=== PATIENT | female | born 1980 | race Caucasian/White ===

== ENCOUNTER 2016-09-29 16:31 | Emergency (ER) | payer MEDICAID ==
[~2016-09-29] VITALS: Ht 172.7 cm; Wt 157.7 kg
[~2016-09-29 16:31] MED LIST: BACTRIM DS 8001 TAB PO; BACTROBAN2% TP; CEFTIN500 MG PO; CELEXA20 MG PO; CEPHALEXIN500 M1 PO; CIPRO 250MG TA250 MG PO; CIPRO 500MG TA500 MG PO; CYMBALTA 60MG60 MG PO; DAZIDOX10 MG PO; DIFLUCAN150 MG PO; DOXYCYCLINE 10100 MG PO; DOXYCYCLINE100 M2 PO; DOXYCYCLINE100 MG PO; FLAGYL500 MG PO; FLONASEALLERGY NS; KEFLEX500 MG PO; LEVAQUIN 5500 MG/TA1 PO; LEVAQUIN 5500 MG/TAB PO; LEXAPRO 10MG10 MG PO; LORTAB 5/500 501 TAB PO; LORTAB 7.5/5001 TAB PO; MACROBID 1100 MG/CAP PO; METRONIDAZOLE500 MG PO; NO HOME MEDICATIONS; NORCO 325 MG-51 TAB PO; NORCO 325 MG-7.1 TAB PO; OMNICEF 300MG300 MG PO; PHENERGAN 25 TA25 MG PO; PHENERGAN25 MG RC; PHENTERMINE; PROAIR HFA0.09 MG/AC IH; PYRIDIUM 100MG100 MG PO; PYRIDIUM200 M1 PO; RITE AID LICE T59 ML TP; ROXICODONE 55 MG/TAB PO; SEPTRA DS 8001 TAB PO; STOOL SOFTENER100 M2 PO; STRATTERA 10MG10 MG PO; TESSALON PERLE200 MG PO; ULTRAM 50MG TAB50 MG PO; VICODIN 5/5001 UDTAB PO; VITAMIN B12100 MCG PO; VYVANSE50 MG PO; WELLBUTRIN XL300 M1 PO; ZITHROMAX 250M250 MG PO; ZITHROMAX Z PA250 MG PO; ZOFRAN8 MG PO; ZOLOFT 25MG25 MG PO; [UNRECOGNIZED DRUG - OTHER]; [UNRECOGNIZED DRUG - OTHER]
[2016-09-29 16:43] VITALS: BP 130/103; TEMP 98.4
[2016-09-29 17:39] LABS: INFLUENZA B NEGATIVE
[2016-09-29] MEDS ORDERED: TESSALON P100 MG/CAP PO (18:02)
[2016-09-29 18:15] VITALS: PULSE 88
== END 2016-09-29 18:14 | disposition home or self-care (01) ==
LOC: COL.ER 16:31
PROVIDERS: Physician Assistant
DX: J06.9 Acute upper respiratory infection, unspecified (principal); F17.210 Nicotine dependence, cigarettes, uncomplicated

== ENCOUNTER 2017-01-25 22:07 | Emergency (ER) | payer MEDICAID ==
[~2017-01-25] VITALS: Ht 172.7 cm; Wt 131.8 kg
[~2017-01-25 22:07] MED LIST changes: +TESSALON P100 MG/CAP PO
[2017-01-25 22:11] VITALS: PULSE 90; TEMP 98.8
[2017-01-25] MEDS ORDERED: EMBEDA PO (22:16)
[2017-01-25 22:53] VITALS: BP 154/108
== END 2017-01-25 22:54 | disposition home or self-care (01) ==
LOC: COL.ER 22:07
DX: H10.33 Unspecified acute conjunctivitis, bilateral (principal); I10 Essential (primary) hypertension

== ENCOUNTER 2017-03-26 03:58 | Emergency (ER) | payer MEDICAID ==
[~2017-03-26] VITALS: Ht 172.7 cm; Wt 138.2 kg
[~2017-03-26 03:58] MED LIST changes: +EMBEDA PO
[2017-03-26 04:00] VITALS: TEMP 98.4
[2017-03-26] MEDS ORDERED: PYRIDIUM200 M1 PO (04:38)
[2017-03-26] MEDS ORDERED: CIPRO 500MG TA500 MG PO (04:38)
[2017-03-26 04:49] LABS: PH 6 (5-8); SQUAMOUS EPITHELIAL 0-2 /hpf; URINE APPEARANCE Clear; URINE BACTERIA Rare /hpf; URINE BILIRUBIN Negative (NEGATIVE); URINE BLOOD 2+ (NEGATIVE); URINE COLOR Yellow; URINE GLUCOSE Negative (NEGATIVE); URINE KETONE Negative (NEGATIVE); URINE RBC 0-2 /hpf; URINE UROBILINOGEN Negative (NEGATIVE); URINE WBC >50 /hpf
[2017-03-26 04:55] VITALS: BP 145/81; PULSE 84
[2017-03-26 06:16] LABS: CHLAMYDIA/TRACH by PCR Female DETECTED; NEISSERIA GON by PCR Female NOT DETECTED
[2017-03-26] MEDS ORDERED: DOXYCYCLINE 10100 MG PO (06:47)
== END 2017-03-26 04:55 | disposition home or self-care (01) ==
LOC: COL.ER 03:58
PROVIDERS: Emergency Medicine
DX: N30.00 Acute cystitis without hematuria (principal)

== ENCOUNTER 2017-06-02 14:05 | Emergency (ER) | payer MEDICAID ==
[~2017-06-02] VITALS: Ht 172.7 cm; Wt 154.5 kg
[2017-06-02 14:07] VITALS: BP 182/109; PULSE 82; TEMP 99
[2017-06-02] MEDS ORDERED: TENEX PO (14:10)
[2017-06-02 14:50] LABS: BASO # 0.1 (0.0-0.2); BASO % 0.4 % (0.0-2.0); EOS # 0.2 (0.0-0.7); EOS % 1.6 % (0-4.0); GRAN # 7.7 (1.4-6.5); HEMATOCRIT 41.4 % (37.0-47.0); HEMOGLOBIN 13.4 g/dl (12.5-16.0); LYMPH # 3.3 (1.2-3.4); LYMPH % 27.6 % (20.0-51.0); MEAN CELL VOLUME 92 fl (80.0-100.0); MEAN CORPUSCULAR HEMOGLOBIN 30 pg (27.0-31.0); MEAN CORPUSCULAR HGB CONC 32 g/dl (33.0-37.0); MEAN PLATELET VOLUME 10.1 fl (7.4-10.4); MONO # 0.8 (0.1-0.6); MONO % 6.2 % (1.7-9.3); PLATELET COUNT 360 K/mm3 (130-400); RED BLOOD COUNT 4.48 M/mm3 (4.10-5.30); REDCELL DISTRIBUTION WIDTH-CV 13.6 % (11.5-14.5); WHITE BLOOD COUNT 12.1 K/mm3 (4.8-10.8)
[2017-06-02 15:03] LABS: ADJUSTED CALCIUM 9.1 mg/dL (8.4-10.2); ALANINE AMINOTRANSFERASE 17 U/L (9-52); ALBUMIN 4.1 gm/dL (3.5-5.0); ALKALINE PHOSPHATASE 91 U/L (50-136); ANION GAP 9 mmol/L (7-16); BILIRUBIN,TOTAL 0.5 mg/dL (0.0-1.0); BLOOD UREA NITROGEN 8 mg/dL (7-17); CALCIUM 9.2 mg/dL (8.4-10.2); CARBON DIOXIDE 26 mmol/L (22-30); CHLORIDE 106 mmol/L (98-107); CREATININE, serum 0.74 mg/dL (0.52-1.25); GLUCOSE 96 mg/dL (74-106); SODIUM 142 mmol/L (137-145); TOTAL PROTEIN 7.6 gm/dL (6.4-8.2)
[2017-06-02 15:11] LABS: ACETAMINOPHEN < 10 ug/mL (10-30); SALICYLATE < 1.0 mg/dL
[2017-06-02 15:13] LABS: AMPHETAMINE URINE NEGATIVE; BARBITURATES URINE NEGATIVE; BENZODIAZEPINES URINE NEGATIVE; BUPRENORPHINE URINE NEGATIVE; METHADONE URINE NEGATIVE; OPIATES URINE NEGATIVE; OXYCODONE URINE NEGATIVE; PHENCYCLIDINE URINE NEGATIVE; PROPOXYPHENE URINE NEGATIVE; THC CANNABINOIDS URINE NEGATIVE
== END 2017-06-02 17:39 | disposition home or self-care (01) ==
LOC: COL.ER 14:05
PROVIDERS: Physician Assistant
DX: D72.829 Elevated white blood cell count, unspecified (principal); R45.851 Suicidal ideations; F43.9 Reaction to severe stress, unspecified; F41.9 Anxiety disorder, unspecified; F32.9 Major depressive disorder, single episode, unspecified; F17.210 Nicotine dependence, cigarettes, uncomplicated; Z91.5 Personal history of self-harm

== ENCOUNTER → 2017-08-25 | Outpatient (CLI) | payer MEDICAID ==
[~2017-08-25] VITALS: Ht 170.2 cm; Wt 156.7 kg
[~2017-08-25] MED LIST changes: +DESYREL 100MG100 MG PO; +LAMICTAL 25MG T25 MG PO; +TENEX PO
[2017-08-25 08:24] VITALS: BP 134/90; PULSE 64
== END ==
LOC: LIGHT 08-11 08:47
DX: M54.5 Low back pain (principal); F32.89 Other specified depressive episodes; E03.9 Hypothyroidism, unspecified; E88.81 Metabolic syndrome and other insulin resistance; Z68.43 Body mass index [BMI] 50.0-59.9, adult; Z71.3 Dietary counseling and surveillance

== ENCOUNTER 2017-10-26 00:59 | Emergency (ER) | payer MEDICAID ==
[~2017-10-26] VITALS: Ht 160 cm; Wt 132.3 kg
[2017-10-26 01:06] VITALS: TEMP 98.5
[2017-10-26 01:17] VITALS: BP 166/92; PULSE 90
[2017-10-26 01:18] LABS: COLLECTION METHOD CLEAN CATCH
[2017-10-26 01:28] LABS: PH 5 (5-8); URINE APPEARANCE Clear; URINE BILIRUBIN Negative (NEGATIVE); URINE BLOOD 2+ (NEGATIVE); URINE COLOR Yellow; URINE GLUCOSE Negative (NEGATIVE); URINE KETONE Negative (NEGATIVE); URINE LEUKOCYTE ESTERASE Negative (NEGATIVE); URINE NITRATE Negative (NEGATIVE); URINE PROTEIN(semi-quant) Negative (NEGATIVE); URINE UROBILINOGEN Negative (NEGATIVE)
[2017-10-26 01:34] LABS: URINE RBC 0-2 /hpf
[2017-10-26] MEDS ORDERED: FLAGYL500 MG PO (02:33)
== END 2017-10-26 02:52 | disposition home or self-care (01) ==
LOC: COL.ER 00:59
PROVIDERS: Nurse Practitioner
DX: N76.0 Acute vaginitis (principal); F17.210 Nicotine dependence, cigarettes, uncomplicated; Z90.49 Acquired absence of other specified parts of digestive tract; Z98.51 Tubal ligation status
CPT/HCPCS: J1170; J2405

== ENCOUNTER → 2018-02-17 | Outpatient (CLI) | payer MEDICAID | LOC: COL.RAD 16:10 | DX: M17.12 Unilateral primary osteoarthritis, left knee (principal) ==

== ENCOUNTER → 2018-05-18 | Outpatient (CLI) | payer MEDICAID | LOC: COL.RAD 08:04 | DX: M51.17 Intervertebral disc disorders with radiculopathy, lumbosacral region (principal); M47.27 Other spondylosis with radiculopathy, lumbosacral region ==

== ENCOUNTER 2019-04-28 19:36 | Emergency (ER) | payer MEDICAID ==
[~2019-04-28] VITALS: Ht 170.2 cm; Wt 145.5 kg
[2019-04-28 19:44] VITALS: BP 197/95; TEMP 99.1
[2019-04-28 20:12] LABS: COLLECTION METHOD CLEAN CATCH
[2019-04-28] MEDS ORDERED: DOXYCYCLINE HY100 MG PO (20:35)
[2019-04-28 20:45] LABS: MUCOUS Present /lpf; PH 5 (5-8); URINE APPEARANCE Hazy; URINE BACTERIA None Seen /hpf; URINE BILIRUBIN Negative (NEGATIVE); URINE BLOOD Negative (NEGATIVE); URINE COLOR Yellow; URINE GLUCOSE Negative (NEGATIVE); URINE KETONE Negative (NEGATIVE); URINE LEUKOCYTE ESTERASE Negative (NEGATIVE); URINE NITRATE Negative (NEGATIVE); URINE PROTEIN(semi-quant) Negative (NEGATIVE); URINE RBC 0-2 /hpf; URINE UROBILINOGEN Negative (NEGATIVE)
[2019-04-28 21:45] VITALS: PULSE 87
== END 2019-04-28 21:45 | disposition home or self-care (01) ==
LOC: COL.ER 19:36
PROVIDERS: Physician Assistant
DX: N89.8 Other specified noninflammatory disorders of vagina (principal); I10 Essential (primary) hypertension; Z20.2 Contact with and (suspected) exposure to infections with a predominantly sexual mode of transmission

== ENCOUNTER 2020-02-11 20:02 | Emergency (ER) | payer MEDICAID ==
[~2020-02-11 20:02] MED LIST changes: +DOXYCYCLINE HY100 MG PO
[2020-02-11 20:40] LABS: BASO # 0.1 (0.0-0.2); BASO % 0.2 % (0.0-2.0); EOS # 0.1 (0.0-0.7); EOS % 0.6 % (0-4.0); GRAN # 17.7 (1.4-6.5); GRAN % 75.8 % (42.2-75.2); HEMATOCRIT 42.7 % (37.0-47.0); HEMOGLOBIN 13.9 g/dl (12.5-16.0); MEAN CELL VOLUME 95 fl (80.0-100.0); MEAN CORPUSCULAR HEMOGLOBIN 31 pg (27.0-31.0); MEAN CORPUSCULAR HGB CONC 33 g/dl (33.0-37.0); MEAN PLATELET VOLUME 9.5 fl (7.4-10.4); MONO # 1.4 (0.1-0.6); MONO % 5.8 % (1.7-9.3); PLATELET COUNT 334 K/mm3 (130-400); RED BLOOD COUNT 4.48 M/mm3 (4.10-5.30); REDCELL DISTRIBUTION WIDTH-CV 13.8 % (11.5-14.5)
[2020-02-11 20:50] LABS: ALANINE AMINOTRANSFERASE 14 U/L (4-34); ALBUMIN 4.5 gm/dL (3.5-5.0); ALKALINE PHOSPHATASE 154 U/L (50-136); ANION GAP 9 mmol/L (7-16); AST,SGOT 28 U/L (15-37); BILIRUBIN,TOTAL 0.9 mg/dL (0.0-1.0); BLOOD UREA NITROGEN 14 mg/dL (7-17); CALCIUM 9.6 mg/dL (8.4-10.2); CARBON DIOXIDE 24 mmol/L (22-30); CHLORIDE 107 mmol/L (98-107); CREATININE, serum 0.86 (0.52-1.25); GLUCOSE 113 mg/dL (74-106); POTASSIUM 3.8 mmol/L (3.4-5.0); SODIUM 141 mmol/L (137-145); TOTAL PROTEIN 8.5 gm/dL (6.4-8.2)
[2020-02-11 20:53] LABS: ACETAMINOPHEN < 10 ug/mL (10-30); ALCOHOL(ethanol),MEDICAL < 10 mg/dL; SALICYLATE < 1.0 mg/dL
[2020-02-11] MEDS ORDERED: CIPRO 250MG TA250 MG PO (21:10)
[2020-02-11] MEDS ORDERED: PYRIDIUM200 M1 PO (21:11)
[2020-02-11] MEDS ORDERED: PRENATAL MVI PO (21:12)
[2020-02-11] MEDS ORDERED: VYVANSE30 MG PO (21:14)
[2020-02-11] MEDS ORDERED: VITAMIN D 400400 IU PO (21:14)
[2020-02-11 21:53] LABS: COLLECTION METHOD CLEAN CATCH
[2020-02-11 22:02] LABS: MUCOUS Present /lpf; PH 5 (5-8); URINE APPEARANCE Cloudy; URINE BACTERIA None Seen /hpf; URINE BILIRUBIN Negative (NEGATIVE); URINE BLOOD Negative (NEGATIVE); URINE COLOR Amber; URINE GLUCOSE Negative (NEGATIVE); URINE KETONE Trace (NEGATIVE); URINE LEUKOCYTE ESTERASE Negative (NEGATIVE); URINE NITRATE Negative (NEGATIVE); URINE PROTEIN(semi-quant) 1+ (NEGATIVE); URINE RBC 0-2 /hpf
[2020-02-11 22:19] LABS: TRICYCLIC ANTIDEPRESS URINE NEGATIVE
[2020-02-12 08:37] LABS: BASO # 0.1 (0.0-0.2); BASO % 0.3 % (0.0-2.0); EOS # 0.1 (0.0-0.7); EOS % 0.7 % (0-4.0); GRAN # 13.1 (1.4-6.5); GRAN % 69.6 % (42.2-75.2); HEMATOCRIT 39.6 % (37.0-47.0); HEMOGLOBIN 12.9 g/dl (12.5-16.0); LYMPH # 4.2 (1.2-3.4); LYMPH % 22.2 % (20.0-51.0); MEAN CELL VOLUME 96 fl (80.0-100.0); MEAN CORPUSCULAR HEMOGLOBIN 31 pg (27.0-31.0); MEAN CORPUSCULAR HGB CONC 33 g/dl (33.0-37.0); MEAN PLATELET VOLUME 9.4 fl (7.4-10.4); MONO # 1.3 (0.1-0.6); MONO % 6.6 % (1.7-9.3); PLATELET COUNT 285 K/mm3 (130-400); RED BLOOD COUNT 4.12 M/mm3 (4.10-5.30); REDCELL DISTRIBUTION WIDTH-CV 13.9 % (11.5-14.5)
[2020-02-12 12:55] VITALS: TEMP 98.3
--- NOTE | 2020-02-12 16:30 | NUR ---
Anthropologist Physical jimmy consult to assist with discharge planning for patient, who reports she is homeless. JASMIN collaborated with Gregoria CHAMBERLAIN who advised patient's mother, Yecenia (ph#[phone]) does not feel safe about patient discharging home with her due to patient's behaviors. SW met with patient who is tearful and occasionally raises her voice. Patient reports she has been staying with her mom on and off but her mom doesn't trust her anymore. Patient states reason she came to ER is because she found out there are friends she spends time with that she should not trust. Patient reports her sister Mily (ph#[phone]) brought her to the ER. Patient states she is worried about where she will go from here. Patient states she has been at [facility] before but doesn't think they will allow her back. Patient states she sees Dr. Guallpa, Psychiatrist and Sheila, Therapist at [facility] and has appointments with them scheduled for this week. JASMIN contacted Bijal, Pastry Wrapper at [facility] who advised they absolutely will not take patient back as she exhausted services available to her and due to her drug use. SW attempted to contact patient's sister, Mily and left a message. JASMIN contacted patient's mother, Yecenia who advised patient has an extensive mental health history and that she is concerned about patient's current stability. Yecenia inquired about a psych screen as patient has been incoherent on the phone with her. Yecenia reports patient stated she has finally figured out how to telepathically speak with the police through the santiago. JASMIN followed up with ER Physician and CINTIA Kinney about ordering a psych consult. JASMIN contacted [facility] and faxed facesheet and ER note to screener. JASMIN followed up with Gregoria CHAMBERLAIN who advised screen is on hold as patient is not medically cleared at this time. JASMIN provided update on discharge planning including that [facility] will not take patient back. SW to continue to follow as needed.
[2020-02-12 16:33] LABS: INR 1.1 (0.8-3.0); PROTHROMBIN TIME 12.4 SECONDS (9.7-12.8)
[2020-02-12 17:13] LABS: CSF APPEARANCE CLEAR; CSF COLOR COLORLESS; CSF RBC 8 /mm3 (0-0)
[2020-02-12 17:14] LABS: CSF RBC 2 /mm3 (0-0)
[2020-02-12 17:27] LABS: GLUCOSE,CSF 58 mg/dL (40-70); TOTAL PROTEIN,CSF 36 mg/dL (15-45)
[2020-02-12 17:52] LABS: CSF MONONUCLEAR 89 % (70-100); CSF POLYMORPHONUCLEAR 11 % (0-6)
[2020-02-12 17:53] LABS: CSF MONONUCLEAR 100 % (70-100); CSF POLYMORPHONUCLEAR 0 % (0-6)
[2020-02-12 23:40] VITALS: BP 140/82; PULSE 88
== END 2020-02-12 23:45 | disposition home or self-care (01) ==
LOC: COL.ER 20:02
PROVIDERS: Emergency Medicine; Nurse Practitioner
DX: F23 Brief psychotic disorder (principal); F43.10 Post-traumatic stress disorder, unspecified; F17.210 Nicotine dependence, cigarettes, uncomplicated; Z90.49 Acquired absence of other specified parts of digestive tract
CPT/HCPCS: J1200; J1630; J2060; J3410

== ENCOUNTER → 2020-03-12 | Outpatient (CLI) | payer MEDICAID ==
[~2020-03-12] MED LIST changes: +PRENATAL MVI PO; +VITAMIN D 400400 IU PO; +VYVANSE30 MG PO
== END ==
LOC: ZCOL.LAB 17:12
DX: U07.1 COVID-19 (principal)

== ENCOUNTER 2020-05-04 20:55 | Inpatient (IN) | payer MEDICAID ==
[~2020-05-04] VITALS: Ht 170.2 cm; Wt 143.1 kg
[2020-05-04 21:25] LABS: HEMATOCRIT 51.6 % (37.0-47.0); HEMOGLOBIN 16.6 g/dl (12.5-16.0); MEAN CELL VOLUME 94 fl (80.0-100.0); MEAN CORPUSCULAR HEMOGLOBIN 30 pg (27.0-31.0); MEAN CORPUSCULAR HGB CONC 32 g/dl (33.0-37.0); PLATELET COUNT 255 K/mm3 (130-400); RED BLOOD COUNT 5.52 M/mm3 (4.10-5.30); REDCELL DISTRIBUTION WIDTH-CV 14.6 % (11.5-14.5)
[2020-05-04 21:39] LABS: ACETAMINOPHEN < 10 ug/mL (10-30); ALANINE AMINOTRANSFERASE 306 U/L (4-34); ALBUMIN 4.3 gm/dL (3.5-5.0); ALCOHOL(ethanol),MEDICAL < 10 mg/dL; ALKALINE PHOSPHATASE 137 U/L (50-136); ANION GAP 13 mmol/L (7-16); BILIRUBIN,TOTAL 0.8 mg/dL (0.0-1.0); BLOOD UREA NITROGEN 49 mg/dL (7-17); CARBON DIOXIDE 22 mmol/L (22-30); CHLORIDE 113 mmol/L (98-107); CREATININE, serum 1.84 (0.52-1.25); GLUCOSE 168 mg/dL (74-106); POTASSIUM 4.2 mmol/L (3.4-5.0); SALICYLATE < 1.0 mg/dL; SODIUM 147 mmol/L (137-145); TOTAL PROTEIN 8.5 gm/dL (6.4-8.2)
[2020-05-04 21:46] LABS: COLLECTION METHOD CATHETER
[2020-05-04 21:55] LABS: AMORPHOUS CRYSTAL Present /uL; MUCOUS Present /lpf; PH 6 (5-8); SQUAMOUS EPITHELIAL 0-2 /hpf; URINE APPEARANCE Cloudy; URINE BACTERIA Occasional /hpf; URINE BILIRUBIN Negative (NEGATIVE); URINE BLOOD 3+ (NEGATIVE); URINE COLOR Amber; URINE GLUCOSE Negative (NEGATIVE); URINE KETONE Trace (NEGATIVE); URINE LEUKOCYTE ESTERASE Negative (NEGATIVE); URINE NITRATE Negative (NEGATIVE); URINE PROTEIN(semi-quant) 2+ (NEGATIVE); URINE UROBILINOGEN Negative (NEGATIVE)
[2020-05-04 22:04] LABS: TRICYCLIC ANTIDEPRESS URINE NEGATIVE
[2020-05-04 22:05] LABS: BAND 2 % (0-10); HYPOCHROMIA 1+; LYMPHOCYTE 9 % (20.0-51.0); NEUTROPHILS 87 % (42.0-75.2); PLATELET ESTIMATE NORMAL (NORMAL); TOXIC GRANULATION PRESENT
[2020-05-04 22:44] LABS: CREATINE KINASE 116120 U/L (30-135)
[2020-05-04 22:47] LABS: ARTERIAL BLD GAS O2 SATURATION 96.5 % (92-100); ARTERIAL BLD GAS TCO2 CT 20.4; ARTERIAL BLOOD GAS BASE EXCESS -4.4 (-2-2); ARTERIAL BLOOD GAS HCO3 19.4 meq/L (22-26); ARTERIAL BLOOD GAS PCO2 32.7 mmHg (35-45); ARTERIAL BLOOD GAS PO2 84.2 mmHg (80-100); ARTERIAL BLOOD GAS pH 7.39 (7.35-7.45)
[2020-05-04 23:20] LABS: AST,SGOT 1961 U/L (15-37)
[2020-05-04 23:29] LABS: TROPONIN-I 0.051 ng/mL (0.000-0.035)
[2020-05-05] VITALS (741 sets, daily range): BP systolic 124–152; BP diastolic 74–93; PULSE 82–113; TEMP 97.8–102.9; O2SAT 78–100
--- NOTE | 2020-05-05 00:07 | NUR ---
RECEIVED REPORT FROM CINTIA KOO FROM ER. AWAITING ARRIVAL OF PT TO ICU 1.
--- NOTE | 2020-05-05 01:05 | NUR ---
PT ARRIVES TO ICU 1 VIA STRETCHER ON PORTABLE OUTPAT[facility]ILITY PHYSICAL THERAPIST AND 5L VIA OXYMASK. PT IS COHERENT BUT IS MUMBLING AND IS ABLE TO ROLL SELF ONTO ICU BED. PT DOES NEED SOME REMINDERS TO KEEP MOVING OVER TO BED TO GET REPOSITIONED, NEEDS SOME ASSISTANCE. CALL LIGHT WITHIN REACH. BEDALARM PLACED. PT PLACED ON BEDSIDE CONTINUOUS MONITOR. COOPERATIVE WITH CARE. MAKES SOME CONFUSING STATEMENTS BUT IS ABLE TO ANSWER ORIENTATION QUESTIONS APPROPRIATELY AND EXPRESS NEEDS. PT STATES SHE HURTS ALL OVER WHEN SHE MOVES. FC PATENT AND DRAINING TO GRAVITY. VERY DARK COLORED URINE NOTED. PT WASHED UP SOME AND INSTA DRY CLOTH PLACED IN GROIN FOLD WHERE THERE IS SEVERE EXCORIATION AND MUCUS LIKE MOISTURE. NOTED SMALL RED DOTS, SIMILAR TO PETICHIE ALL OVER BACK, LOWER HIPS AND RT SIDE. LIPS VERY DRY AND CRUSTY. NOTED CRUSTYS ON EYES WELL. PT ACCEPTING WASH UP AND VERBALIZED UNDERSTANDING TO HELP STAY CLEAN AND DRY. NO ACUTE DISTRESS NOTED AT THIS TIME. PT ASKS FOR WATER, PROVIDED.
--- NOTE | 2020-05-05 01:40 | NUR ---
WHEN PT FALLS ASLEEP, POX DROPS TO 88%, INCREASED O2 TO 7L VIA OXYMASK.
[2020-05-05] MEDS ORDERED: GEODON60 MG PO (01:53)
[2020-05-05] MEDS ORDERED: PROVENTIL0.09 MG/A1 IH (01:57)
[2020-05-05] MEDS ORDERED: AMBIEN 10MG10 MG PO (01:59)
[2020-05-05] MEDS ORDERED: KLONOPIN 0.5MG0.5 MG PO (01:59)
[2020-05-05 05:24] LABS: MEAN CELL VOLUME 95 fl (80.0-100.0); MEAN CORPUSCULAR HEMOGLOBIN 30 pg (27.0-31.0); MEAN CORPUSCULAR HGB CONC 32 g/dl (33.0-37.0); MEAN PLATELET VOLUME 11.1 fl (7.4-10.4); PLATELET COUNT 220 K/mm3 (130-400); RED BLOOD COUNT 4.82 M/mm3 (4.10-5.30); REDCELL DISTRIBUTION WIDTH-CV 14.6 % (11.5-14.5)
[2020-05-05 05:37] LABS: ALBUMIN 3.5 gm/dL (3.5-5.0); BILIRUBIN,TOTAL 0.6 mg/dL (0.0-1.0); CALCIUM 7.6 mg/dL (8.4-10.2); CREATININE, serum 1.64 (0.52-1.25); POTASSIUM 4.5 mmol/L (3.4-5.0); TOTAL PROTEIN 7.2 gm/dL (6.4-8.2)
[2020-05-05 05:38] LABS: HEMOGLOBIN 14.6 g/dl (12.5-16.0)
[2020-05-05 06:21] LABS: BAND 11 % (0-10); EOSINOPHIL 1 % (0-4); LYMPHOCYTE 32 % (20.0-51.0); METAMYELOCYTE 1 % (0-0); NEUTROPHILS 48 % (42.0-75.2); PLATELET ESTIMATE NORMAL (NORMAL)
[2020-05-05 07:12] LABS: TROPONIN-I 0.027 ng/mL (0.000-0.035)
--- NOTE | 2020-05-05 15:44 | NUR ---
SW met with patient and nurse provided she has been sleep most of the day. SW called mother to obtain intake information. Mother Yecenia [phone] stated that patient lives in [place] with her son. Mother states that patient does not utilize any DME and is independent with ADL's, but has had some back pain in the more recent days and unstable at times. Mother states PCP is Dr. Plata and patient is able to afford medication at this time. Mother states that she is unsure if patient has a DPOA-HC. Mother also provides that the patient was in the crises stabalization facitily about a month or so ago, and has had some recent issues lately. Mother provides she is unsure of what the plan will be in regards to discharge and will be in contact with the nurse frequently to know about the outcome. SW will continue to follow.
--- NOTE | 2020-05-05 18:46 | NUR ---
Pt sleeping, snores intermittently, occasional periods of SPO2 decrease to 82% while asleep, RT notified plan to use CPAP overnight. Intermittently, patient noted to be talking with no one in the room, per patient "I just talk myself through things sometimes" Consumed 100% of clear liquid diet, requesting diet advance-no swallowing issues with thin liquids. Complete bath and linen change this afternoon following incontinence of liquid brown stool this evening. Nystatin and desenex powder applied.
--- NOTE | 2020-05-05 19:00 | NUR ---
RECEIVED REPORT FROM CINTIA HAM. PT SLEEPING. VSS. CALL LIGHT WITHIN REACH. FC PATENT AND DRAINING TO GRAVITY.
[2020-05-06] VITALS (1049 sets, daily range): BP systolic 131–159; BP diastolic 67–100; PULSE 79–91; TEMP 97.2–98.6; O2SAT 59–100
[2020-05-06 05:04] LABS: ALBUMIN 3.3 gm/dL (3.5-5.0); BILIRUBIN,TOTAL 0.4 mg/dL (0.0-1.0); CALCIUM 8.2 mg/dL (8.4-10.2); CREATININE, serum 1.35 (0.52-1.25); POTASSIUM 4.5 mmol/L (3.4-5.0); TOTAL PROTEIN 6.7 gm/dL (6.4-8.2)
--- NOTE | 2020-05-06 19:51 | NUR ---
Arrived to medical floor at 1920. Assessment complete. Lungs clear. Heart sounds normal. Bowels active x4. Pulses present throughout. Bilateral lower extremity edema +1. INT right hand, left hand and left AC flushed. Fluids started in left hand. Denies pain. Would like ambien restarted. Groin area excoriated. Cleaned and powdered applied as ordered. Nystatin applied to buttocks. Denies other needs at this time. Call light in reach.
--- NOTE | 2020-05-06 23:30 | NUR ---
Resting in bed. Denies needs. Denies pain. Call light in reach.
--- NOTE | 2020-05-07 02:16 | NUR ---
Resting in bed. Denies needs. Call light in reach.
[2020-05-07 03:33] VITALS: BP 105/86; PULSE 78; TEMP 97.3
--- NOTE | 2020-05-07 05:17 | NUR ---
Patient had uneventful night. Resting in bed this AM. Call light in reach.
--- NOTE | 2020-05-07 07:05 | NUR ---
Report given to CINTIA Carson
[2020-05-07 07:22] VITALS: BP 111/60; PULSE 89; TEMP 97.7
[2020-05-07 07:25] LABS: BASO % 0.1 % (0.0-2.0); EOS # 0.2 (0.0-0.7); EOS % 1.4 % (0-4.0); GRAN # 9.7 (1.4-6.5); GRAN % 77.4 % (42.2-75.2); HEMATOCRIT 43.5 % (37.0-47.0); HEMOGLOBIN 14.1 g/dl (12.5-16.0); LYMPH # 2.1 (1.2-3.4); LYMPH % 16.8 % (20.0-51.0); MEAN CELL VOLUME 94 fl (80.0-100.0); MEAN CORPUSCULAR HEMOGLOBIN 31 pg (27.0-31.0); MEAN CORPUSCULAR HGB CONC 32 g/dl (33.0-37.0); MEAN PLATELET VOLUME 11.5 fl (7.4-10.4); MONO # 0.5 (0.1-0.6); MONO % 3.7 % (1.7-9.3); PLATELET COUNT 229 K/mm3 (130-400); RED BLOOD COUNT 4.63 M/mm3 (4.10-5.30); REDCELL DISTRIBUTION WIDTH-CV 14.1 % (11.5-14.5)
[2020-05-07 07:38] LABS: CALCIUM 8.3 mg/dL (8.4-10.2); CREATININE, serum 1.19 (0.52-1.25); POTASSIUM 4.3 mmol/L (3.4-5.0)
[2020-05-07 08:31] LABS: ALBUMIN 2.9 gm/dL (3.5-5.0); BILIRUBIN,TOTAL 0.3 mg/dL (0.0-1.0); MAGNESIUM 2.2 mg/dL (1.6-2.3); PHOSPHOROUS 3.3 mg/dL (2.5-4.5); TOTAL PROTEIN 5.9 gm/dL (6.4-8.2)
[2020-05-07 09:01] LABS: BILIRUBIN UNCONJUGATED 0.1 mg/dL (0.0-1.1); BILIRUBIN,DIRECT 0.2 mg/dL (0.0-0.4)
--- NOTE | 2020-05-07 09:38 | NUR ---
Assessment complete. Patient up to bedside commode at time of assessment. Patient fully weight beared and was able to ambulate via 1 assist. Patient was inconitnent of loose stool prior to ambulation. All IV sites are CD&I, IVF infusing into left hand at this time. Paient denies pain. Bed was changed. Pts extremities were somewhat cool to the touch while her body was clammy, temp has been normal. Padilla is patent draining trini colored urine. No other needs were expressed at this time. Call light is in reach. Will continue to monitor.
--- NOTE | 2020-05-07 10:00 | NUR ---
Patient called and requested help as she has been incontinent of stool. When arriving to assist she requested to take a shower. Given the she was able to ambulate to the [facility] via 1 assist I told her this was okay. PAtient ambulated well via 1 assist to the shower and was able to sit. Asssist was required to wash her body and hair. Patient had an incontinent bowel movement while in the shower. Patient was becoming short of breath while in the shower. Oxygen via high flow nasal cannula was placed on patient while in shower. She then stated that this was making it harder for her to breathe and requested me to remove it. 2 assist was used to get pt out of the shower. Patient was extrememly short of breath and anxious. High flow nasal cannula ws placed on patient again. PAtient was encouraged to deep breathe and purse lips. PAtient took approx 30-45 mins to catch her breath and relax. PRN ativan was provided as well, this helped. Will continue to monitor closely.
--- NOTE | 2020-05-07 12:30 | NUR ---
Patient is now resting comfortably, laying on her side. Resp rate remains at 37-40 but patient is satting well and has relaxed. Will continue to monitor.
[2020-05-07 12:48] VITALS: BP 139/71; PULSE 127; TEMP 97.8
--- NOTE | 2020-05-07 14:44 | NUR ---
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 Negative nares swab this visit. Will discontinue contact precautions. Nurse reports patient does have some under pannus excoriation ---recommend CHG soap for daily bathing. Danitza Be RN
[2020-05-07 16:10] VITALS: BP 110/70; PULSE 115; TEMP 97.2
--- NOTE | 2020-05-07 17:13 | NUR ---
Patient has been up to the bedside commode twice since her shower and SOB episode. She has tolerated this well. She becomes tachypnic but is recovering faster than this morning. Patient has urinated twice since the discontinuation of the mistry catheter. She reported some pain with urination but states that it has improved with each urination. Continuing to monitor.
[2020-05-07 20:00] VITALS: BP 126/74; PULSE 105; TEMP 97.4
--- NOTE | 2020-05-07 20:30 | NUR ---
Initial shift assessment done- anxious/will give Ativan as ordered, hyperventilating. Just back from bathroom- o2 at 3L/nc-- stayed and talked with patient to help her relax--- Tele on. IV fluids of LR at 150cc/hr-
[2020-05-08 00:38] VITALS: BP 105/39; PULSE 105; TEMP 97.6
--- NOTE | 2020-05-08 04:14 | NUR ---
Up to [facility] with 1 assist- steady on feet this morning- breathing rapidly when any activity,, voided good amount and small stool--back to bed, 02 remains at 3L/nc-- states shes going back to sleep
[2020-05-08 04:22] VITALS: BP 98/50; PULSE 101; TEMP 97.3
[2020-05-08 07:18] LABS: BASO % 0.2 % (0.0-2.0); EOS # 0.3 (0.0-0.7); EOS % 1.8 % (0-4.0); GRAN # 10.7 (1.4-6.5); GRAN % 74.5 % (42.2-75.2); HEMATOCRIT 44.9 % (37.0-47.0); HEMOGLOBIN 14.3 g/dl (12.5-16.0); LYMPH # 2.7 (1.2-3.4); LYMPH % 18.8 % (20.0-51.0); MEAN CELL VOLUME 94 fl (80.0-100.0); MEAN CORPUSCULAR HEMOGLOBIN 30 pg (27.0-31.0); MEAN CORPUSCULAR HGB CONC 32 g/dl (33.0-37.0); MEAN PLATELET VOLUME 11.6 fl (7.4-10.4); MONO # 0.5 (0.1-0.6); MONO % 3.8 % (1.7-9.3); PLATELET COUNT 230 K/mm3 (130-400); RED BLOOD COUNT 4.79 M/mm3 (4.10-5.30); REDCELL DISTRIBUTION WIDTH-CV 14.1 % (11.5-14.5)
[2020-05-08 07:32] LABS: BILIRUBIN,TOTAL 0.3 mg/dL (0.0-1.0); CALCIUM 8.7 mg/dL (8.4-10.2); CREATININE, serum 1.2 (0.52-1.25); POTASSIUM 4.3 mmol/L (3.4-5.0)
[2020-05-08 08:31] VITALS: BP 123/71; PULSE 94; TEMP 97.2
--- NOTE | 2020-05-08 10:51 | NUR ---
First visit from the park superintendent. No needs right now.
--- NOTE | 2020-05-08 11:14 | NUR ---
Assessment completed, alert/oriented, vital signs stable, denies pain or discomfort, heart RRR/distal pulses are palpable, lungs CTA/ n oreps.difficult at this time but patient does have episodes of anxiety where she being to hyperventilate, labs are improving, IVF continue to run at 150ml/hr, denies other needs at ths time will continue to mointor, she is having her ECHO done at thistime
[2020-05-08 12:46] VITALS: BP 131/65; PULSE 99; TEMP 97.9
--- NOTE | 2020-05-08 14:44 | NUR ---
The patient was interested in complete DPOA-HC paperwork. The patient designated her mother Yecenia. JASMIN and the patient's nurse witnessed the form. A copy was placed in the chart. The original and copies were given to the patient.
[2020-05-08 16:38] VITALS: BP 115/53; PULSE 99; TEMP 97.7
[2020-05-08 19:10] VITALS: BP 118/79; PULSE 91; TEMP 98.2
--- NOTE | 2020-05-08 19:54 | NUR ---
Resting in bed. Assessment complete. Lungs clear-having an anxiety attack given ativan. Labored breathing. Heart sounds normal. Bowels active x4. Pulses present. Bilateral lower extremity edema +1. INT left hand flushed without complications. Denies pain. ABD fold ulcer/wheeping would present. Desenex and intradry applied and cleaned. Denies needs at this time. Call light in reach.
[2020-05-09] VITALS (7 sets, daily range): BP systolic 104–138; BP diastolic 49–88; PULSE 93–102; TEMP 97.6–98.7
--- NOTE | 2020-05-09 00:35 | NUR ---
Up to bedside commode and returned to bed. Denies pain. denies needs. Call light in reach.
--- NOTE | 2020-05-09 02:38 | NUR ---
Resting in bed. Denies needs. Call light in reach.
--- NOTE | 2020-05-09 06:06 | NUR ---
Patient up to commode and returned to bed. Otherwise uneventful night. Resting. Denies needs. Call light in reach.
--- NOTE | 2020-05-09 07:04 | NUR ---
Report given to CINTIA Carson
[2020-05-09 07:08] LABS: BASO % 0.3 % (0.0-2.0); EOS # 0.4 (0.0-0.7); EOS % 2.6 % (0-4.0); GRAN # 11.3 (1.4-6.5); GRAN % 76.4 % (42.2-75.2); HEMOGLOBIN 12.8 g/dl (12.5-16.0); LYMPH # 2.5 (1.2-3.4); LYMPH % 16.5 % (20.0-51.0); MEAN CELL VOLUME 94 fl (80.0-100.0); MEAN CORPUSCULAR HEMOGLOBIN 30 pg (27.0-31.0); MEAN CORPUSCULAR HGB CONC 32 g/dl (33.0-37.0); MEAN PLATELET VOLUME 11.1 fl (7.4-10.4); MONO # 0.5 (0.1-0.6); MONO % 3.6 % (1.7-9.3); PLATELET COUNT 244 K/mm3 (130-400); RED BLOOD COUNT 4.26 M/mm3 (4.10-5.30); REDCELL DISTRIBUTION WIDTH-CV 14.3 % (11.5-14.5)
[2020-05-09 07:17] LABS: ALBUMIN 2.9 gm/dL (3.5-5.0); BILIRUBIN,TOTAL 0.3 mg/dL (0.0-1.0); CALCIUM 8.8 mg/dL (8.4-10.2); CREATININE, serum 1.17 (0.52-1.25); POTASSIUM 4.2 mmol/L (3.4-5.0); TOTAL PROTEIN 5.6 gm/dL (6.4-8.2)
--- NOTE | 2020-05-09 09:04 | NUR ---
Frog Catcher attended clinical rounds with the patient. Physician provided patient education on drug use. Will continue to monitor.
--- NOTE | 2020-05-09 17:13 | NUR ---
Patient has had a very good day today. She has been up to the recliner for more than half the day. Her SOB has improved with ambulation but it is still significant. No other needs were expressed at this time. Will continue to monitor. Call light is in reach.
--- NOTE | 2020-05-09 23:02 | NUR ---
Pt resting in bed, reported aching pain all over and anxiety. gave tylenol and ativan prn per orders documented on the NOV. pt confirms shortness of breath on exertion, but denies currently at rest. several ulcers in stomach folds and groin area, cleaned the sites and applied more nystatin cream as well at interdry sheet. no other needs at this time.
[2020-05-10 02:56] VITALS: BP 135/62; PULSE 91; TEMP 98.4
--- NOTE | 2020-05-10 06:05 | NUR ---
pt sleeping in bed most of the night, gave prn ambien and ativan for anxiety per MAR. will continue to monitor.
[2020-05-10 07:22] LABS: BASO % 0.2 % (0.0-2.0); EOS # 0.5 (0.0-0.7); EOS % 2.7 % (0-4.0); GRAN % 77.2 % (42.2-75.2); HEMOGLOBIN 12.9 g/dl (12.5-16.0); LYMPH # 2.5 (1.2-3.4); MEAN CELL VOLUME 95 fl (80.0-100.0); MEAN CORPUSCULAR HEMOGLOBIN 31 pg (27.0-31.0); MEAN CORPUSCULAR HGB CONC 32 g/dl (33.0-37.0); MEAN PLATELET VOLUME 10.9 fl (7.4-10.4); MONO # 0.7 (0.1-0.6); PLATELET COUNT 291 K/mm3 (130-400); RED BLOOD COUNT 4.22 M/mm3 (4.10-5.30); REDCELL DISTRIBUTION WIDTH-CV 14.5 % (11.5-14.5)
[2020-05-10 07:49] LABS: ALBUMIN 2.9 gm/dL (3.5-5.0); BILIRUBIN,TOTAL 0.3 mg/dL (0.0-1.0); CALCIUM 8.9 mg/dL (8.4-10.2); CREATININE, serum 1.12 (0.52-1.25); POTASSIUM 4.4 mmol/L (3.4-5.0); TOTAL PROTEIN 5.6 gm/dL (6.4-8.2)
[2020-05-10 09:07] VITALS: BP 122/76; PULSE 93; TEMP 97.3
--- NOTE | 2020-05-10 10:09 | NUR ---
Pt assessment completed and charted. medications administered per NOV. Pt A&O, SBA in room. Pt on 3L NC, ANDERSON noted when getting back from bathroom. Pt states some dizziness upon return when laying down. Pulses strong bilaterally. Lung sounds UL bilaterally CTA, bases diminished. BS active, heart RRR, occasionally tachy. Pt denies N/V. Pt had BM, soft to loose. pt denies chest pain, abdominal pain, numbness or tingling. Pt refused desenex and nystatin this morning, stated she would put it on this evening. Abdominal redness, ulcers to folds, covered w/ interdry sheet. Pt requesting ativan for anxiety. LH INT IV flushes w/o difficulty. No further needs at this time.
[2020-05-10 11:56] VITALS: BP 132/86; PULSE 87; TEMP 97.6
[2020-05-10 16:53] VITALS: BP 106/58; PULSE 95; TEMP 98.2
--- NOTE | 2020-05-10 18:00 | NUR ---
Pt stating she has some muscle soreness, requesting tylenol. Administered per nov.
[2020-05-10 19:30] VITALS: BP 117/62; PULSE 96; TEMP 97.9
--- NOTE | 2020-05-10 23:31 | NUR ---
Pt resting in bed, gave meds per NOV. cleaned wound areas on lower stomach and groin skin folds, reapplied nystatin cream and intradry sheet. pt denies any pain at wound sites, states they are feeling better. gave clonazepam prn for anxiety and ambien for sleep. no other needs at this time, will continue to monitor.
[2020-05-11] VITALS (7 sets, daily range): BP systolic 92–150; BP diastolic 51–96; PULSE 87–97; TEMP 97.5–98.7
[2020-05-11 01:00] LABS: HEPATITIS B SURFACE ANTIBODY <2.0 (()); HEPATITIS C VIRUS ANTIBODY Negative (Negative)
[2020-05-11 01:01] LABS: HEPATITIS B SURFACE ANTIGEN Negative (Negative)
--- NOTE | 2020-05-11 05:20 | NUR ---
Pt resting in bed, asleep most of the night. no needs at this time.
[2020-05-11 08:20] LABS: BASO % 0.3 % (0.0-2.0); EOS # 0.2 (0.0-0.7); GRAN # 8.7 (1.4-6.5); GRAN % 72.5 % (42.2-75.2); HEMATOCRIT 39.6 % (37.0-47.0); HEMOGLOBIN 12.7 g/dl (12.5-16.0); LYMPH # 2.2 (1.2-3.4); LYMPH % 18.2 % (20.0-51.0); MEAN CELL VOLUME 94 fl (80.0-100.0); MEAN CORPUSCULAR HEMOGLOBIN 30 pg (27.0-31.0); MEAN CORPUSCULAR HGB CONC 32 g/dl (33.0-37.0); MEAN PLATELET VOLUME 10.2 fl (7.4-10.4); MONO # 0.7 (0.1-0.6); MONO % 5.6 % (1.7-9.3); PLATELET COUNT 327 K/mm3 (130-400); RED BLOOD COUNT 4.21 M/mm3 (4.10-5.30); REDCELL DISTRIBUTION WIDTH-CV 14.6 % (11.5-14.5)
[2020-05-11 08:38] LABS: ALBUMIN 2.9 gm/dL (3.5-5.0); BILIRUBIN,TOTAL 0.4 mg/dL (0.0-1.0); CALCIUM 8.7 mg/dL (8.4-10.2); CREATININE, serum 1.08 (0.52-1.25); POTASSIUM 4.1 mmol/L (3.4-5.0); TOTAL PROTEIN 5.7 gm/dL (6.4-8.2)
--- NOTE | 2020-05-11 19:18 | NUR ---
patient is alert and oriented, complained of generalized pain. pain is managed with tylenol. patient is more independent today. tolerating diet fine. no question or concern at this time.
--- NOTE | 2020-05-11 21:41 | NUR ---
Pt resting in bed, reports pain in legs. cleaned wound sites in abdominal skin folds, applied nystatin cream per MAR and covered with interdry. wounds have small amount of yellow drainage, pt denies pain at the sites. gave clonazepam and ambien prn for anxiety/sleep, documented in the MAR. heart sounds regular and lung sounds are clear, oxgyen on at 2 liters. no other needs at this time.
[2020-05-12 04:27] VITALS: BP 115/77; PULSE 83; TEMP 98.1
--- NOTE | 2020-05-12 06:14 | NUR ---
pt sleeping in bed most of the night. states that she went to the bathroom and her IV came out. CINTIA Colin attempted to restart an IV with no success. called residential housekeeper to attempt IV start. gave pt tylenol for pain in her legs and back, documented in NOV.
[2020-05-12 07:27] LABS: BASO % 0.4 % (0.0-2.0); EOS # 0.2 (0.0-0.7); GRAN # 6.3 (1.4-6.5); GRAN % 61.4 % (42.2-75.2); HEMATOCRIT 38.8 % (37.0-47.0); HEMOGLOBIN 12.8 g/dl (12.5-16.0); LYMPH # 2.7 (1.2-3.4); LYMPH % 26.1 % (20.0-51.0); MEAN CELL VOLUME 93 fl (80.0-100.0); MEAN CORPUSCULAR HEMOGLOBIN 31 pg (27.0-31.0); MEAN CORPUSCULAR HGB CONC 33 g/dl (33.0-37.0); MEAN PLATELET VOLUME 9.9 fl (7.4-10.4); MONO # 0.9 (0.1-0.6); PLATELET COUNT 355 K/mm3 (130-400); RED BLOOD COUNT 4.16 M/mm3 (4.10-5.30); REDCELL DISTRIBUTION WIDTH-CV 14.6 % (11.5-14.5)
[2020-05-12 07:37] VITALS: BP 130/62; PULSE 69; TEMP 97.8
[2020-05-12 07:38] LABS: ALBUMIN 3.1 gm/dL (3.5-5.0); BILIRUBIN,TOTAL 0.4 mg/dL (0.0-1.0); CALCIUM 9.2 mg/dL (8.4-10.2); CREATININE, serum 1.08 (0.52-1.25); POTASSIUM 4.3 mmol/L (3.4-5.0)
--- NOTE | 2020-05-12 09:32 | NUR ---
PT WAS FOUND ON ROOM AIR. O2 SAT 95%. AMBULATED WITH PT AND MAINTAINED 94% UP UNTIL 100 FEET THEN DESATTED TO 85%. INCREASED SHORTNESS OF BREATH WITHOUT DIZINESS. PT RESTED AND RECOVERED TO 90% ON RA AFTER 5 MINS. CONTINUED AMBULATING BACK TO ROOM DISTANCE OF 50 FEET AND DESATTED TO 88%. RESTED IN BED AND RECOVERD TO 94% ON RA AFTER LESS THAN 5 MINS. PT EDUCATED ON SHORT GUILLAUME OF ACTIVITY WITH REST PERIODS. STEADY IN-ROOM AMBULATION. PT REPORTS GENERALIZED PAIN FROM BEING ON FLOOR FOR EXTENDED PERIOD OF TIME BEFORE ADMISSION
--- NOTE | 2020-05-12 12:52 | NUR ---
DISCHARGE INSTRUCTIONS GIVEN TO PT @ 7163. PT WAITING FOR MOM TO BRING CLOTHES
--- NOTE | 2020-05-12 13:22 | NUR ---
PT DISCHARGED TO HOME ACCOMPANIED BY MOM @ 6249. ALL QUESTIONS ANSWERED. NO IV THIS SHIFT, DISLODGED OVERNIGHT
--- NOTE | 2020-05-12 17:09 | NUR ---
SW received call from hospitalist who wished for patient to be referred for HHS. Patient was due to be discharged in the next few hours. SW visited patient at her bedside, and discussed choices for HHs. Patient picked [facility] for her 1st choice, [facility] 2nd choice, and [facility] for her 3rd choice. SW called and left a message for [facility] before faxing over referral and discharge paperwork. SW spoke with Josr at [facility], and faxed over documents, and Sw spoke to Lyn at [facility], however they do not accept clients [place] [facility]. So, referrals were sent to [facility], and [facility].
== END 2020-05-12 13:15 | disposition home health service (06) | DRG 917 ==
LOC: COL.ER 20:55 → ICU 22:42 → MEDICAL 22:42 → ICU 05-06 10:07 → MEDICAL 05-06 19:00
PROVIDERS: Emergency Medicine; Hospitalist; Internal Medicine Pulmonary Disease; Nurse Practitioner Primary Care; Physician Assistant
DX: T40.7X1A Poisoning by cannabis (derivatives), accidental (unintentional), initial encounter (principal); J96.01 Acute respiratory failure with hypoxia; J18.9 Pneumonia, unspecified organism; I21.A1 Myocardial infarction type 2; M62.82 Rhabdomyolysis; N17.9 Acute kidney failure, unspecified; E87.0 Hyperosmolality and hypernatremia; F05 Delirium due to known physiological condition; T40.2X1A Poisoning by other opioids, accidental (unintentional), initial encounter; T40.5X1A Poisoning by cocaine, accidental (unintentional), initial encounter; E86.0 Dehydration; Z20.828 Contact with and (suspected) exposure to other viral communicable diseases; F41.9 Anxiety disorder, unspecified; B37.2 Candidiasis of skin and nail; Z88.0 Allergy status to penicillin; Z88.1 Allergy status to other antibiotic agents; F32.9 Major depressive disorder, single episode, unspecified; F17.210 Nicotine dependence, cigarettes, uncomplicated
CPT/HCPCS: 99223-AI; 99232-AI; 99233-AI; 99239; A9284; J0692; J1650; J1956; J2060; J2930; J7030; J7120

== ENCOUNTER 2021-06-13 11:09 | Day surgery (SDC) | payer MEDICAID ==
[~2021-06-13] VITALS: Ht 170.2 cm; Wt 161.2 kg
[~2021-06-13 11:09] MED LIST changes: +AMBIEN 10MG10 MG PO; +GEODON60 MG PO; +KLONOPIN 0.5MG0.5 MG PO; +PROVENTIL0.09 MG/A1 IH
[2021-06-13] MEDS ORDERED: VALIUM 5MG T5 MG/TAB PO (12:39)
[2021-06-13] MEDS ORDERED: LATUDA40 MG PO (12:40)
[2021-06-13 12:51] LABS: TRICYCLIC ANTIDEPRESS URINE NEGATIVE
[2021-06-13 13:28] VITALS: BP 136/75; PULSE 77; TEMP 98.2
[2021-06-13 13:30] VITALS: BP 131/78; PULSE 77
[2021-06-13 14:02] VITALS: BP 137/95; PULSE 76; TEMP 97.8
--- NOTE | 2021-06-13 14:10 | NUR ---
1330 Pt returns from endo procedure via cart and RN assist to GI Kay 2. Pt ambulates from cart to recliner with RN assist. Monitors on and alarms set. Call light within reach. Pt alert and oriented. Pt requests Pepsi. Pt denies any pain or nausea. 1340 Pt taking drink well. No complications noted. 1400 Discharge instructions given to pt. All questions answered to her satisfaction. Handed to pt is discharge information. 1410 Pt transferred out of the hospital via wheelchair and this RN assist, to private vehicle driven by friend.
== END 2021-06-13 14:10 | disposition home or self-care (01) ==
LOC: SDCO 11:09
PROVIDERS: Registered Nurse
DX: R19.7 Diarrhea, unspecified (principal); R19.4 Change in bowel habit; R15.9 Full incontinence of feces; K57.30 Diverticulosis of large intestine without perforation or abscess without bleeding; K21.9 Gastro-esophageal reflux disease without esophagitis; E66.01 Morbid (severe) obesity due to excess calories; J45.909 Unspecified asthma, uncomplicated; F41.9 Anxiety disorder, unspecified; F31.9 Bipolar disorder, unspecified; F17.210 Nicotine dependence, cigarettes, uncomplicated; F90.9 Attention-deficit hyperactivity disorder, unspecified type; Z20.822 Contact with and (suspected) exposure to COVID-19; Z79.891 Long term (current) use of opiate analgesic; Z79.899 Other long term (current) drug therapy; Z68.43 Body mass index [BMI] 50.0-59.9, adult
CPT/HCPCS: J2704

== ENCOUNTER 2021-08-28 11:15 | Outpatient (RCR) | payer MEDICAID ==
[~2021-08-28 11:15] MED LIST changes: +LATUDA40 MG PO; +VALIUM 5MG T5 MG/TAB PO
== END 2021-09-05 | disposition home or self-care (01) ==
LOC: WSC
DX: M54.50 Low back pain, unspecified (principal); G89.29 Other chronic pain

== ENCOUNTER → 2022-06-04 | Outpatient (CLI) | payer MEDICAID | LOC: COL.PUL 10:37 | DX: J45.20 Mild intermittent asthma, uncomplicated (principal) ==

== ENCOUNTER 2022-12-07 18:59 | Emergency (ER) | payer MEDICAID ==
[~2022-12-07] VITALS: Ht 170.2 cm; Wt 163.2 kg
[2022-12-07 19:55] LABS: BASO # 0.1 K/mm3 (0.0-0.2); BASO % 0.5 % (0.0-2.0); EOS # 0.5 K/mm3 (0.0-0.7); EOS % 2.7 % (0.0-4.0); GRAN # 10.5 K/mm3 (1.4-6.5); GRAN % 62.4 % (42.2-75.2); HEMATOCRIT 41.5 % (37.0-47.0); HEMOGLOBIN 13.5 g/dl (12.5-16.0); LYMPH # 4.3 K/mm3 (1.2-3.4); LYMPH % 25.9 % (20.0-51.0); MEAN CELL VOLUME 92 fl (80.0-100.0); MEAN CORPUSCULAR HEMOGLOBIN 30 pg (27-31); MEAN CORPUSCULAR HGB CONC 33 g/dl (33.0-37.0); MEAN PLATELET VOLUME 9.8 fl (7.4-10.4); MONO # 1.4 K/mm3 (0.1-0.6); MONO % 8.1 % (1.7-9.3); PLATELET COUNT 361 K/mm3 (130-400)
[2022-12-07 20:12] LABS: ALANINE AMINOTRANSFERASE 16 U/L (0-55); ALBUMIN 4.4 gm/dL (3.5-5.0); ALKALINE PHOSPHATASE 117 U/L (40-150); ANION GAP 15 mmol/L (7-16); AST,SGOT 29 U/L (5-34); BILIRUBIN,TOTAL 0.6 mg/dL (0.2-1.2); BLOOD UREA NITROGEN 24 mg/dL (7-19); CALCIUM 9.7 mg/dL (8.4-10.2); CARBON DIOXIDE 19 mmol/L (22-29); CHLORIDE 107 mmol/L (98-107); CREATININE, serum 1.19 mg/dL (0.57-1.11); GLUCOSE 109 mg/dL (70-99); POTASSIUM 3.8 mmol/L (3.5-4.5); SODIUM 141 mmol/L (136-145); TOTAL PROTEIN 8.3 gm/dL (6.2-8.1)
[2022-12-07 20:18] LABS: ACETAMINOPHEN < 1.0 ug/mL (10-30); ALCOHOL(ethanol),MEDICAL < 10 mg/dL (0-10); SALICYLATE < 5.0 mg/dL (15.0-30.0)
[2022-12-07 20:23] LABS: COLLECTION METHOD CLEAN CATCH
[2022-12-07 20:50] LABS: TRICYCLIC ANTIDEPRESS URINE NEGATIVE
[2022-12-07 21:00] LABS: URINE APPEARANCE Turbid (CLEAR/HAZY); URINE COLOR OTHER (YELLOW)
[2022-12-07 21:01] LABS: MUCOUS Present (NOT PRESENT); URINE BACTERIA Many /hpf (NONE SEEN); URINE BLOOD Negative (NEGATIVE); URINE GLUCOSE Negative (NEGATIVE); URINE KETONE Negative (NEGATIVE); URINE NITRATE Negative (NEGATIVE); URINE PROTEIN(semi-quant) Negative (NEGATIVE); URINE RBC None Seen /hpf (0-2); URINE UROBILINOGEN 0.2 E.U/dL (0.2-1.0)
[2022-12-07 21:36] LABS: COLLECTION METHOD CATHETER
[2022-12-07 21:45] LABS: MUCOUS Present (NOT PRESENT); SQUAMOUS EPITHELIAL 0-2 /hpf (0-10); URINE APPEARANCE Hazy (CLEAR/HAZY); URINE BACTERIA Rare /hpf (NONE SEEN); URINE BLOOD Negative (NEGATIVE); URINE COLOR Yellow (YELLOW); URINE GLUCOSE Negative (NEGATIVE); URINE KETONE TRACE (NEGATIVE); URINE NITRATE Negative (NEGATIVE); URINE PROTEIN(semi-quant) 1+ (NEGATIVE); URINE RBC 0-2 /hpf (0-2); URINE UROBILINOGEN 0.2 (NEGATIVE)
[2022-12-07 21:54] LABS: TRICYCLIC ANTIDEPRESS URINE NEGATIVE
[2022-12-07] MEDS ORDERED: LUNESTA3 MG PO (22:35)
[2022-12-07] MEDS ORDERED: ESKALITH C450 MG/TAB PO (22:35)
[2022-12-07] MEDS ORDERED: PROAIR HFA0.09 MG/AC IH (22:36)
[2022-12-07] MEDS ORDERED: MINIPRESS2 MG PO (22:36)
[2022-12-07] MEDS ORDERED: BACTROBAN 22GM22 GM TP (22:36)
--- NOTE | 2022-12-08 07:00 | NUR ---
In bed, asleep.
--- NOTE | 2022-12-08 07:00 | NUR ---
In bed, sleeping.
[2022-12-08 07:21] VITALS: BP 144/74; PULSE 82; TEMP 98.2
--- NOTE | 2022-12-08 08:15 | NUR ---
Awake, restless. Ate 100% of breakfast. Assisted to bathroom and back to bed.
--- NOTE | 2022-12-08 08:30 | NUR ---
Pt awake, asking for warm blankets. When nursing staff entered room, pt agitated and asking when she can go home. Asking for a phone and states she wants to go outside to smoke a cigarette. Upset when told she cannot smoke here. Did eat majority of breakfast. Bedsheets changed. Agitated at times, banging on the door and saying she wants to go home. Refusing blood pressure and temperature, attempted to throw pulse oximeter at nursing staff. Pt now back in bed, resting.
[2022-12-08] MEDS ORDERED: FLAGYL 375375 MG PO (10:10)
[2022-12-08 10:12] VITALS: BP 156/84; PULSE 90; TEMP 98.4
== END 2022-12-08 10:12 ==
LOC: COL.ER 18:59
PROVIDERS: Emergency Medicine; Nurse Practitioner
DX: F31.9 Bipolar disorder, unspecified (principal); N76.0 Acute vaginitis; F15.10 Other stimulant abuse, uncomplicated
CPT/HCPCS: J2060; J7030

== ENCOUNTER 2022-12-11 10:45 | Emergency (ER) | payer MEDICAID ==
[~2022-12-11] VITALS: Ht 170.2 cm; Wt 159.1 kg
[~2022-12-11 10:45] MED LIST changes: +BACTROBAN 22GM22 GM TP; +ESKALITH C450 MG/TAB PO; +FLAGYL 375375 MG PO; +LUNESTA3 MG PO; +MINIPRESS2 MG PO
[2022-12-11 12:49] LABS: BASO # 0.1 K/mm3 (0.0-0.2); BASO % 0.6 % (0.0-2.0); EOS # 0.3 K/mm3 (0.0-0.7); EOS % 2.4 % (0.0-4.0); HEMOGLOBIN 12.6 g/dl (12.5-16.0); LYMPH # 3.2 K/mm3 (1.2-3.4); MEAN CELL VOLUME 95 fl (80.0-100.0); MEAN CORPUSCULAR HEMOGLOBIN 30 pg (27-31); MEAN CORPUSCULAR HGB CONC 32 g/dl (33.0-37.0); MONO # 0.7 K/mm3 (0.1-0.6); MONO % 5.8 % (1.7-9.3); PLATELET COUNT 364 K/mm3 (130-400); RED BLOOD COUNT 4.22 M/mm3 (4.10-5.30)
[2022-12-11 13:14] LABS: ALANINE AMINOTRANSFERASE 11 U/L (0-55); ALBUMIN 3.6 gm/dL (3.5-5.0); ALKALINE PHOSPHATASE 79 U/L (40-150); ANION GAP 8 mmol/L (7-16); AST,SGOT 15 U/L (5-34); BILIRUBIN,TOTAL 0.2 mg/dL (0.2-1.2); BLOOD UREA NITROGEN 7 mg/dL (7-19); CALCIUM 9.1 mg/dL (8.4-10.2); CARBON DIOXIDE 25 mmol/L (22-29); CHLORIDE 106 mmol/L (98-107); CREATININE, serum 0.72 mg/dL (0.57-1.11); GLUCOSE 91 mg/dL (70-99); LIPASE 31 U/L (8-78); POTASSIUM 4.3 mmol/L (3.5-4.5); SODIUM 139 mmol/L (136-145); TOTAL PROTEIN 7.1 gm/dL (6.2-8.1)
[2022-12-11 13:21] LABS: TROPONIN-I < 0.010 ng/mL (0.00-0.033)
[2022-12-11] MEDS ORDERED: NORVASC 5MG5 MG/TAB PO (14:52)
[2022-12-11 15:00] VITALS: BP 184/99; PULSE 68; TEMP 96.3
== END 2022-12-11 15:05 | disposition home or self-care (01) ==
LOC: COL.ER 10:45
PROVIDERS: Nurse Practitioner
DX: I10 Essential (primary) hypertension (principal); D72.829 Elevated white blood cell count, unspecified; F17.290 Nicotine dependence, other tobacco product, uncomplicated; Z79.899 Other long term (current) drug therapy
CPT/HCPCS: J7030

== ENCOUNTER → 2024-06-06 | Outpatient (CLI) | payer OTHER, MEDICAID ==
[~2024-06-06] MED LIST changes: +ADULT MULTIVIT1 EACH PO; +ADVIL200 MG PO; +B COMPLEX #11 TA1 PO; +BACTROBAN15 GM TOP; +BENADRYL25 M2 PO; +BENTYL 20MG20 MG/TAB PO; +BLUE-EMU LIDOC1 EACH TP; +BREO IH; +CLARITIN 1010 MG/TAB PO; +CLEOCIN HCL300 MG PO; +CYMBALTA 30MG30 MG PO; +ELDERBERRY; +ESKALITH C450 MG/TAB; +FOLIC ACID 11 MG/TA1 PO; +IBU400 MG PO; +LASIX 20MG TABL20 MG PO; +LASIX 40MG TABL40 MG PO; +MULTIVITAMIN200 MCG PO; +NEURONTIN300 MG/CAP PO; +NICODERM C21 MG/PATC TD; +NORVASC 10MG10 MG PO; +NORVASC 5MG5 MG/TAB PO; +NYSTATIN100000 U/1 TOP; +PHARMASSURE ZIN50 MG PO; +PINK BISMUTH262 MG PO; +PREDNISONE20 MG PO; +PRINIVIL5 MG PO; +SEROQUEL 200MG200 MG PO; +SEROQUEL50 MG PO; +SYSTANE 0.3-0.1 EACH OP; +THIAMINE 1100 MG/TAB PO; +TURMERIC500 MG PO; +TYLENOL 500MG500 MG PO; +UNISOM SLEEPGEL50 MG PO; +ZESTRIL 20MG TA20 MG PO; +ZYRTEC 10MG10 MG PO
== END ==
LOC: MC.RAD 10:36
DX: Z12.31 Encounter for screening mammogram for malignant neoplasm of breast (principal)